=== PATIENT | female | born 1990 | race African-American/Black ===

== ENCOUNTER 2023-11-13 06:48 | Emergency (ER) | payer BC ==
[~2023-11-13] VITALS: Ht 157.5 cm; Wt 80.0 kg
[2023-11-13 07:00] VITALS: O2SAT 98
[2023-11-13 08:12] LABS: BASOPHILS % 0.4 % (0.0-2.0); EOSINOPHILS % 0.7 % (0.0-5.0); HEMATOCRIT. 37.1 % (36.0-48.0); HEMOGLOBIN. 12.6 g/dL (12.0-16.0); LYMPHOCYTES % 25.3 % (20.0-50.0); MEAN CORPUSCULAR HEMOGLOBIN 31.7 pg (28.0-32.0); MEAN PLATELET VOLUME 7.6 fl (7.4-10.4); MONOCYTES % 5.8 % (2.0-8.0); NEUTROPHILS % 67.8 % (40.0-76.0); PLATELET 346 x1000/uL (130-400); RED BLOOD CELL COUNT 3.99 mill/uL (4.2-5.4); RED CELL DISTRIBUTION WIDTH 12.8 % (11.6-14.6); WHITE BLOOD COUNT 7.1 x1000/uL (4.5-11.0)
[2023-11-13 08:16] LABS: CLARITY URINE CLOUDY (CLEAR); COLOR URINE ORANGE (YELLOW); GLUCOSE URINE NEGATIVE (NEGATIVE); KETONES URINE NEGATIVE (NEGATIVE); LEUKOCYTE ESTERASE URINE TRACE (NEGATIVE); NITRITE URINE NEGATIVE (NEGATIVE); OCCULT BLOOD URINE 3+ (NEGATIVE); PROTEIN URINE 1+ (NEGATIVE); SPECIFIC GRAVITY URINE 1.021 (1.005-1.030)
[2023-11-13 08:19] LABS: CHLORIDE 107 mEq/L (98-107); POTASSIUM 3.5 mEq/L (3.5-5.1); SODIUM 139 mEq/L (136-145)
[2023-11-13 08:20] LABS: CALCIUM 9.6 mg/dL (8.7-10.4); CARBON DIOXIDE 24 mEq/L (21-32)
[2023-11-13 08:25] LABS: CREATININE 0.5 mg/dL (0.6-1.0); GLUCOSE 88 mg/dL (70-105)
[2023-11-13 08:45] LABS: B-HCG QUANTITATIVE 54715 mIU/mL (<3); UREA NITROGEN BLOOD < 5 mg/dL (9-23)
[2023-11-13 09:16] LABS: RBC URINE TNTC /hpf (0-2); SQUAMOUS EPITHELIAL CELL URINE 2+ /lpf (RARE/1+)
[2023-11-13 09:17] LABS: BACTERIA URINE TRACE; WBC URINE 0-2 /hpf (0-2)
[2023-11-13 09:40] VITALS: BP 124/70; PULSE 80; RESP 16; TEMP 37.00296; O2SAT 98
== END 2023-11-13 09:42 | disposition home or self-care (01) ==
LOC: ER 06:48
DX: O20.0 Threatened abortion (principal); Z3A.14 14 weeks gestation of pregnancy
CPT/HCPCS: 36415; 76801; 80048; 81003; 84702; 85025; 86850; 86900; 99284